=== PATIENT | male | born 1980 | race Two or more races ===

== ENCOUNTER 2017-10-08 12:48 | Emergency (ER) | payer SELFPAY ==
[~2017-10-08] VITALS: Ht 170.2 cm; Wt 90.7 kg
[2017-10-08 12:48] VITALS: BP 142/86
== END 2017-10-08 13:33 | disposition home or self-care (01) ==
LOC: ER 12:49
DX: L03.213 Periorbital cellulitis (principal); I10 Essential (primary) hypertension; E78.00 Pure hypercholesterolemia, unspecified
CPT/HCPCS: 99283; A4606; Z7610

== ENCOUNTER → 2017-12-26 | Emergency (ER) | payer SELFPAY | END | disposition left against medical advice (07) | LOC: ER 05:56 | DX: Z53.21 Procedure and treatment not carried out due to patient leaving prior to being seen by health care provider (principal) | CPT/HCPCS: A4606 ==

== ENCOUNTER 2019-12-09 22:49 | Emergency (ER) | payer OTHER ==
[~2019-12-09] VITALS: Ht 172.7 cm; Wt 94.8 kg
[2019-12-09 22:49] VITALS: BP 134/69
[2019-12-09] MEDS ORDERED: LIDOCAINE 1%-EPI 1:100,000 20 ML VIAL ONE (22:56)
[2019-12-09] MEDS ORDERED: TDAP [DIPH/PERTUSSIS/TET] 0.5 ML VIAL IM ONE (23:00)
[2019-12-09] MEDS ORDERED: LIDOCAINE VISCOUS 2% UD 15 ML UDC ONE (23:33)
[2019-12-10] MEDS ORDERED: LIDOCAINE 1% INJ 50 ML MDV IJ ONE (00:01)
[2019-12-10] MEDS ORDERED: TDAP [DIPH/PERTUSSIS/TET] 0.5 ML VIAL IM ONE (00:45)
[2019-12-10] MEDS ORDERED: CLINDAMYCIN HCL 150 MG CAPSULE PO ONE ×2 (04:30→04:42)
== END 2019-12-10 04:46 | disposition home or self-care (01) ==
LOC: ER 22:50
DX: S01.511A Laceration without foreign body of lip, initial encounter (principal); I10 Essential (primary) hypertension; K21.9 Gastro-esophageal reflux disease without esophagitis; E78.00 Pure hypercholesterolemia, unspecified; M10.9 Gout, unspecified; F17.200 Nicotine dependence, unspecified, uncomplicated; Y04.0XXA Assault by unarmed brawl or fight, initial encounter; Y93.89 Activity, other specified; Y92.89 Other specified places as the place of occurrence of the external cause; Y99.8 Other external cause status
CPT/HCPCS: 12052; 90471; 90715; 99284; J3490 ×2